=== PATIENT | female | born 1995 | race American Indian/Alaskan Native ===

== ENCOUNTER 2017-01-12 21:12 | Emergency (ER) | payer OTHER ==
[2017-01-12 22:15] LABS: Urine Drugs of Abuse Note Disclamer
[2017-01-12 22:23] LABS: Eosinophils % (Auto) 0.1 % (0.0-4.3); Hematocrit 27.1 % (30.3-42.9); Hemoglobin 7.9 gm/dl (10.1-14.3); Mean Corpuscular HGB Conc 29 % (30-34); Mean Corpuscular Hemoglobin 18 pg (28-32); Mean Corpuscular Volume 61 fl (79-97); Platelet Count 225 K/mm3 (140-440); Red Blood Count 4.44 M/mm3 (3.65-5.03); White Blood Count 9.8 K/mm3 (4.5-11.0)
[2017-01-12 22:24] LABS: Basophils % (Auto) 0.5 % (0.0-1.8)
[2017-01-12 22:28] LABS: Bacteria,Urine 1+ /HPF (Negative); Bilirubin,Urine NEG (Negative); Blood,Urine NEG (Negative); Ketones,Urine NEG (Negative); Leukocyte Esterase,Urine MOD (Negative); Mucus,Urine 3+ /HPF; Nitrite,Urine NEG (Negative)
[2017-01-12 22:31] LABS: Anion Gap 18 mmol/L; Blood Urea Nitrogen 7 mg/dL (7-17); Carbon Dioxide 22 mmol/L (22-30); Chloride 106.2 mmol/L (98-107); Glucose 126 mg/dL (65-100); Potassium 4.1 mmol/L (3.6-5.0); Sodium 142 mmol/L (137-145)
--- NOTE | 2017-01-13 06:56 | Cat Scan Report ---
FINAL REPORT PROCEDURE: CT CERVICAL SPINE WO CON TECHNIQUE: Computerized tomography of the cervical spine was performed from the skull base to T1 without contrast material. HISTORY: tried to hang herself COMPARISON: No prior studies are available for comparison. FINDINGS: C1-2: No significant abnormality. C2-3: No significant abnormality. C3-4: No significant abnormality. C4-5: No significant abnormality. C5-6: No significant abnormality. C6-7: No significant abnormality. C7-T1: No significant abnormality. Other: The skull base and the foramen magnum are intact. Cervical vertebrae are intact. There are no fractures or malalignments. The disc spaces are normal. The facet joints are intact without evidence of dislocation. The prevertebral soft tissues are normal in thickness. Trachea is midline patent.. IMPRESSION: No significant abnormality.
--- NOTE | 2017-01-13 07:23 | Emergency Department Report ---
ED Psych HPI - General Chief Complaint: Psych Stated Complaint: SUICIDAL Time Seen by Provider: 01/13/17 07:09 Source: patient, RN notes reviewed Mode of arrival: Wheelchair Limitations: No Limitations - History of Present Illness Initial Comments: 21-year-old female presents to the emergency department after a reported suicide attempt. Patient states that she tried to hang herself using a belt. She states she was found by someone and was taken down. She denies auditory or visual hallucinations. She is currently denying pain. There are no other complaints. MD Complaint: suicidal ideation -: unknown Associated Psychiatric Symptoms: suicidal ideation History of same: No Quality: constant Improves With: none Worsens With: none Associated Symptoms: denies other symptoms Treatments Prior to Arrival: none If Self Harm: admits thoughts of, has plan, has acted on plan - Related Data Allergies Allergy/AdvReac Type Severity Reaction Status Date / Time No Known Allergies Allergy Unverified 01/12/17 21:19 ED Review of Systems ROS: Stated complaint: SUICIDAL Other details as noted in HPI Comment: All other systems reviewed and negative Psychiatric: suicidal thoughts ED Past Medical Hx - Past Medical History Previous Medical History?: No - Surgical History Past Surgical History?: No - Family History Family history: no significant - Social History Smoking Status: Never Smoker Substance Use Type: None ED Physical Exam - General Limitations: No Limitations General appearance: alert, in no apparent distress - Head Head exam: Present: atraumatic, normocephalic - Eye Eye exam: Present: normal appearance, PERRL, EOMI - ENT ENT exam: Present: normal exam, normal orophraynx, mucous membranes moist - Neck Neck exam: Present: normal inspection, full ROM. Absent: tenderness - Respiratory Respiratory exam: Present: normal lung sounds bilaterally. Absent: respiratory distress - Cardiovascular Cardiovascular Exam: Present: regular rate, normal rhythm, normal heart sounds - GI/Abdominal GI/Abdominal exam: Present: soft, normal bowel sounds. Absent: distended, tenderness - Extremities Exam Extremities exam: Present: normal inspection, full ROM. Absent: tenderness - Back Exam Back exam: Present: normal inspection, full ROM. Absent: tenderness - Neurological Exam Neurological exam: Present: alert, oriented X3. Absent: motor sensory deficit - Psychiatric Psychiatric exam: Present: depressed, flat affect, suicidal ideation - Skin Skin exam: Present: warm, dry, intact ED Course Vital Signs 01/12/17 01/12/17 01/12/17 21:19 21:25 21:56 Temperature 98.3 F Pulse Rate 77 Respiratory 18 18 20 Rate Blood Pressure 116/65 Blood Pressure [Left] O2 Sat by Pulse 100 100 Oximetry 01/13/17 01/13/17 06:39 06:41 Temperature 98 F Pulse Rate 78 Respiratory 18 18 Rate Blood Pressure Blood Pressure 110/64 [Left] O2 Sat by Pulse 100 Oximetry ED Medical Decision Making - Lab Data Result diagrams: 01/12/17 22:03 01/12/17 22:03 - Radiology Data Radiology results: report reviewed CT of the cervical spine reveals no acute traumatic injury. - Medical Decision Making Lab and imaging results reviewed and discussed with the patient. Patient has been medically cleared. Form 1013 has been signed and placed on the patient's chart. Patient is awaiting mental health evaluation for inpatient placement. - Differential Diagnosis depression, suicidal ideation, suicide attempt Critical care attestation.: If time is entered above; I have spent that time in minutes in the direct care of this critically ill patient, excluding procedure time. ED Disposition Clinical Impression: Suicide attempt by hanging Qualifiers: Encounter type: initial encounter Qualified Code(s): T71.162A - Asphyxiation due to hanging, intentional self-harm, initial encounter Major depression Qualifiers: Major depression recurrence: single episode Active/Remission status: currently active Major depression episode severity: severe Psychotic features: without psychotic features Qualified Code(s): F32.2 - Major depressive disorder, single episode, severe without psychotic features Disposition: DC/TX-65 PSY HOSP/PSY UNIT Is pt being admited?: No Condition: Stable Referrals: PRIMARY CARE [Primary Care Provider] - 3-5 Days Time of Disposition: :23
--- NOTE | 2017-01-13 14:27 | Consultation ---
History of Present Illness - Reason for Consult Consult date: 01/13/17 Reason for consult: Mental Health Evaluation Requesting physician: VASHTI FERNANDEZ - Chief Complaint Chief complaint: "I was mad about the situation" - History of Present Psychiatric Illness 21-year-old female presents to the emergency department after a reported suicide attempt. Today patient is calm and cooperative during assessment. She stated that she tried to kill herself by using a belt. She stated that she got into an argument with family members because she could not go to the park to play basketball. She stated that this is her first attempt at suicide. She did admit that she wanted to . During our conversation, patient was elusive with some of her answers. She stated that her life isn't right at this time and it bothers her. She stated some days she want to stay in bed and not be bother by family. Also, she stated that she want to get back in college to complete her degree and play basketball. She denies SI/HI's and AVH's. She denies sleep disturbances and a poor appetite. She denies recreational drug use and alcohol consumption. Medications and Allergies Allergies Allergy/AdvReac Type Severity Reaction Status Date / Time No Known Allergies Allergy Unverified 01/12/17 21:19 Past psychiatric history - Past Medical History Past Medical History: No medical history Past Surgical History: No surgical history - past Psychiatric treatment and history psychiatric treatment history: Denies a psy hx and a fam psy hx. - Social History Social history: lives with family ([employer] graduate with some college) Mental Status Exam - Vital signs Last Vital Signs Temp 98 F 01/13/17 06:39 Pulse 78 01/13/17 06:39 Resp 18 01/13/17 06:41 BP 110/64 01/13/17 06:39 Pulse Ox 100 01/13/17 06:39 - Exam Narrative exam: ROS: (+) Impulsive MSE: Appearance: cooperative, calm Behavior: regular eye contact Speech: low rate and tone Mood: "okay" withdrawn Affect: labile Thought Process: circumstantial Thought Content: denies SI/HI's and AVH's Motor Activity: ambulatory Cognition: A/Ox 3 Insight: limited Judgment: limited Results Result Diagrams: 01/12/17 22:03 01/12/17 22:03 Abnormal lab results 01/12/17 01/12/17 01/13/17 Range/Units 22:03 22:03 00:28 Hgb 7.9 L (10.1-14.3) gm/dl Hct 27.1 L (30.3-42.9) % MCV 61 L (79-97) fl MCH 18 L (28-32) pg MCHC 29 L (30-34) % RDW 19.0 H (13.2-15.2) % Lymph % (Auto) 9.2 L (13.4-35.0) % Lymph # 0.9 L (1.2-5.4) K/mm3 Seg Neutrophils % 83.4 H (40.0-70.0) % Seg Neutrophils # 8.2 H (1.8-7.7) K/mm3 Glucose 126 H (65-100) mg/dL Salicylates < 0.3 L (2.8-20.0) mg/dL All other labs normal. Assessment and Plan Assessment and plan: Impression: Unspecified Mood DO. Today patient is calm and cooperative during assessment. Elusive with her answers during assessment. Positive for barbiturates. DDx: R/O Bipolar Recommendation/Plan: Continue 1013 with placement to inpatient psy services. Gather collateral information to determine proper treatment.
--- NOTE | 2017-01-14 12:17 | Progress Note ---
Subjective - Reason for Consult Consult date: 01/14/17 Reason for consult: Psychiatry Follow-up - Chief Complaint Chief complaint: "I understand the situation" 21-year-old female presents to the emergency department after a reported suicide attempt. Today patient is calm and cooperative during assessment. Today patient was more engaging during our conversation. She stated that she could have handled the situation a better way. Per her mother Pan Bucio [phone], she stated that her daughter has never shown this type of behavior before. She denies a psy hx including any medications being taking by her daughter at this time. She stated that her daughter got upset because she could not go to the park. She thought that she walked outside to cool down, but found her daughter with a belt around her neck in her room. The patient denies SI/HI' s and AVH's. Per the staff, no behavioral disturbances overnight. Mental Status Exam - Vital signs Last Vital Signs Temp 98 F 01/13/17 19:40 Pulse 72 01/13/17 19:40 Resp 20 01/13/17 20:09 BP 107/62 01/13/17 19:40 Pulse Ox 100 01/13/17 19:40 - Exam Narrative exam: MSE: Appearance: cooperative, calm Behavior: regular eye contact Speech: low rate and tone Mood: "okay" Affect: labile Thought Process: circumstantial Thought Content: denies SI/HI's and AVH's Motor Activity: ambulatory Cognition: A/Ox 3 Insight: limited Judgment: limited Assessment and Plan Impression: Unspecified Mood DO. Today patient is calm and cooperative during assessment. Patient more engaging. She denies SI's. Recommendation/Plan: Continue 1013 with placement to inpatient psy services. Discussed generalized coping skills with patient.
--- NOTE | 2017-01-16 11:55 | Progress Note ---
Subjective - Reason for Consult Consult date: 01/16/17 Reason for consult: Psychiatry Follow-up - Chief Complaint Chief complaint: "how are you" 21-year-old female presents to the emergency department after a reported suicide attempt. Today patient is calm and cooperative during assessment. Patient was pleasant and engaging during our conversation. She stated that she spoke with her parents and they plan for her to see a therapist once she is discharged. She stated, "I would like to see a counselor/therapist." She denies SI/HI's, AVH's, and depression symptoms. . Mental Status Exam - Vital signs Last Vital Signs Temp 98.7 F 01/16/17 09:56 Pulse 67 01/16/17 09:56 Resp 18 01/16/17 09:56 BP 96/75 01/16/17 09:56 Pulse Ox 100 01/16/17 09:56 - Exam Narrative exam: MSE: Appearance: cooperative, calm Behavior: regular eye contact Speech: low rate and tone Mood: "okay" Affect: labile Thought Process: circumstantial Thought Content: denies SI/HI's and AVH's Motor Activity: ambulatory Cognition: A/Ox 3 Insight: limited Judgment: limited Assessment and Plan Impression: Unspecified Mood DO. Today patient is calm and cooperative during assessment. She denies SI's. Recommendation/Plan: Evaluate 1013 in 24 hours to determine proper dispo. Discussed generalized coping skills with patient.
[2017-01-17 10:13] VITALS: BP 105/69
--- NOTE | 2017-01-17 10:43 | Progress Note ---
Subjective - Reason for Consult Consult date: 01/17/17 Reason for consult: Psychiatry Follow-up - Chief Complaint Chief complaint: "I spoke with my parents" 21-year-old female presents to the emergency department after a reported suicide attempt. Today patient is calm and cooperative during assessment. Patient is looking forward to being discharged soon. She stated that she spoke with her parents yesterday about her goals once she is discharged. She is adamant about possibly starting college soon. She denies SI/HI's, AVH's, and depression symptoms. Mental Status Exam - Vital signs Last Vital Signs Temp 98.1 F 01/17/17 09:00 Pulse 71 01/17/17 09:00 Resp 18 01/17/17 09:00 BP 105/69 01/17/17 09:00 Pulse Ox 99 01/17/17 09:00 - Exam Narrative exam: MSE: Appearance: cooperative, calm Behavior: regular eye contact Speech: regular rate and tone Mood: "very well" Affect: congruent to mood Thought Process: linear Thought Content: denies SI/HI's and AVH's Motor Activity: ambulatory Cognition: A/Ox 3 Insight: fair Judgment: fair Assessment and Plan Impression: Unspecified Mood DO. Today patient is calm and cooperative during assessment. She denies SI's. Patient is no threat to self. Per her mom (Pan Bucio) patient can return home. Patient has a support system (family). I. This screening and assessment is based on information collected from the following sources: II. SUICIDE RISK SCREENING (within last 30 days): A.) Suicidal thoughts/behaviors: Attempted Hanging SUICIDE RISK ASSESSMENT III. FACTORS THAT INCREASE RISK: A.) Demographic and Substance Use Factors: None B.) Current/Recent Factors (within past 3 months): Psychosocial/Environmental Factors: Want to return to college to complete her degree and play basketball Physical Illness: None Cognitive/Psychological Factors: None C.) Historical Factors: None D.) Diagnostic/Symptom/Treatment Factors: None E.) Acute Risk Factor Severity (DESC; MILD/MOD/SEVERE): Mild Other factors for this individual that increase risk: IV. FACTORS THAT DECREASE RISK: Resilience/Protective Factors: Patient and family want therapy Other factors for this individual that decrease risk: Patient denies a desire to harm self V. Clinician's Formulation of Risk and Determination of level of Care: This is a 21-year-old female who is experiencing psychosocial stressors about her life. Patient is concerned about going back to college and being able to play basketball. These concerns was overwhelming for her, so 4 days ago she had an argument with her parents because she could not go to the park and play basketball. After the argument, she tried to hang herself with a belt. After several days at [facility] patient has denies SI's and understands that her action was severe. She is willing to attend therapy sessions for maladaptive coping once discharged. Since being hospitalized, the patient has consistently denied the desire to harm herself. Additionally, she has become insightful about how to better address her current issues. Patient is not impaired by substance. She is able to take care of her ADL's and is not at imminent risk of harm to self or others. Consequently, it is the opinion of the treatment team that the patient is at low risk of suicide and does not meet criteria to continue an involuntary psychiatric hold. Estimation of Imminent Risk: Low due to the above explanation. Determination of Level of Care based on Suicide Risk: Outpatient follow-up. Narrative description of clinical reasoning. (This must be completed on all patients): . Plan and Interventions based on Suicide Risk: This patient will likely be stepped down to an outpatient mental health center in the community upon discharge and follow-up within 7 days of her discharge from the hospital. VII. Discharge/After Hours Support Plan: Patient can return back to the ER, call 911 or crisis line if she experience symptoms of depression, anxiety, and suicidality. Recommendation/Plan: Rescind 1013. Patient given outpatient psy services information for her local area ([facility]). Discussed generalized coping skills with patient.
== END 2017-01-17 13:14 ==
LOC: ED 21:12 → EEVIPCON 21:12 → ED 01-17 13:14
DX: T71.162A Asphyxiation due to hanging, intentional self-harm, initial encounter (principal); F32.2 Major depressive disorder, single episode, severe without psychotic features; X83.8XXA Intentional self-harm by other specified means, initial encounter; Y93.89 Activity, other specified; Y92.89 Other specified places as the place of occurrence of the external cause; Y99.8 Other external cause status
CPT/HCPCS: 36415; 72125; 80048; 80307; 81001; 82550; 84702; 85025; 99285; G0480; 80320